=== PATIENT | male | born 2000 | race Caucasian/White ===

== ENCOUNTER 2020-10-07 00:05 | Emergency (ER) | payer OTHER ==
[~2020-10-07] VITALS: Ht 172.7 cm; Wt 75.7 kg
[~2020-10-07 00:05] MED LIST: [UNRECOGNIZED DRUG - OTHER] PO
[2020-10-07] MEDS ORDERED: CLORAZEPATE 3.75 MG (00:39)
[2020-10-07] MEDS ORDERED: KETO10TA2 PO (02:16)
== END 2020-10-07 02:31 ==
LOC: EMR PED 00:05
DX: M94.0 Chondrocostal junction syndrome [Tietze] (principal)